=== PATIENT | female | born 1985 | race Two or more races ===

== ENCOUNTER 2018-08-14 16:12 | Emergency (ER) | payer BC, OTHER ==
[~2018-08-14] VITALS: Ht 165.1 cm; Wt 53.5 kg
[2018-08-14 16:32] VITALS: BP 112/71
--- NOTE | 2018-08-14 18:28 | Diagnostic Imaging Report ---
EXAM: US Pelvis Complete, Transabdominal CLINICAL HISTORY: PAIN TECHNIQUE: Real-time transabdominal pelvic ultrasound (complete) with image documentation. COMPARISON: No relevant prior studies available. FINDINGS: Uterus/cervix: Uterus measures 6.6 x 4.2 x 2.6 cm. Endometrium measures 8 mm. Nabothian cysts. Right ovary: Right ovary measures 2.9 x 3.4 x 1.7 cm. No mass lesion or torsion. Left ovary: Left ovary measures 4.2 x 2.9 x 1.7 cm. No mass lesion or torsion. Bladder: Unremarkable as visualized. Wall is normal thickness for degree of distention. Other findings: Assuming a negative test. Correlate. IMPRESSION: No acute findings.
[2018-08-14 18:30] LABS: APPEARANCE,URINE CLEAR; BILIRUBIN, URINE NEGATIVE (NEGATIVE); COLOR,URINE PALE YELLOW; GLUCOSE, URINE (UA) NEGATIVE (NEGATIVE); KETONES,URINE NEGATIVE (NEGATIVE); LEUKOCYTE ESTERASE ,URINE NEGATIVE (NEGATIVE); NITRITE,URINE NEGATIVE (NEGATIVE); PH,URINE 7 (4.5-8.0); PROTEIN,URINE NEGATIVE (NEGATIVE); UROBILINOGEN,URINE NORMAL MG/DL (0.0-1.0)
[2018-08-14] MEDS ORDERED: IBUPROFEN600 MG ORAL (18:34)
[2018-08-14 18:48] VITALS: BP 112/71
--- NOTE | 2018-08-14 21:41 | Emergency Room Report ---
History of Present Illness General Chief Complaint: Abdominal Pain Source: Patient Present Illness HPI Patient is a 32-year-old female who presented after increased abdominal pain for the past 3 weeks. Patient gradual onset of symptoms. Patient reports having generalized lower abdominal discomfort. Patient was sent from primary care physician's office for further evaluation. Patient denied any fever. She had not been vomiting. She puts having generalized pain. She denies being . She denies any dysuria. Irregular menses. Allergies: Coded Allergies: No Known Allergies (Unverified , 08/14/18) Patient History Past Medical History: see triage record Now: No Reviewed Nursing Documentation: PMH: Agreed; PSxH: Agreed Nursing Documentation-PMH Past Medical History: No Stated History Review of Systems All Other Systems: negative except mentioned in HPI Physical Exam Vital Signs Date Time Temp Pulse Resp B/P (MAP) Pulse Ox O2 Delivery O2 Flow Rate FiO2 08/14/18 16:21 98.1 64 16 112/71 97 Room Air 98.1 General Appearance: well appearing, no apparent distress, alert, GCS 15, non- toxic Head: normocephalic, atraumatic ENT: hearing grossly normal, normal voice Neck: full range of motion, supple Respiratory: no respiratory distress, speaking full sentences Cardiovascular #1: normal inspection, normal peripheral pulses, regular rate, rhythm Gastrointestinal: normal inspection, normal bowel sounds Musculoskeletal: normal inspection, no calf tenderness Neurologic: normal inspection, alert, oriented x3, responsive, normal gait Psychiatric: mood/affect normal Skin: no rash Medical Decision Making Diagnostic Impression: Primary Impression: Ovarian cyst Additional Impression: Nabothian (gland) cyst or follicle ER Course Patient presented for abdominal pain. Differential diagnosis included was not limited to ruptured ovarian cyst, ovarian torsion, bowel obstruction, hernia, ectopic among others.Because of complexity of patient's case imaging studies were ordered. The pelvic ultrasound showed no evidence of torsion with multiple cystic lesions. The patient was advised to follow-up with HALFWAY HOUSE COUNSELOR urinalysis showed no evidence of infection patient is not . Patient was given prescription for medications for pain. Last Vital Signs Date Time Temp Pulse Resp B/P (MAP) Pulse Ox O2 Delivery O2 Flow Rate FiO2 08/14/18 18:48 98.1 64 16 112/71 97 Room Air 98.1 Status: improved Disposition: HOME, SELF-CARE Condition: Stable Scripts Ibuprofen* (MOTRIN*) 600 Mg Tablet 600 MG ORAL Q8H PRN for For Pain, #30 TAB 0 Refills Prov: Sid Ty MD 08/14/18 Patient Instructions: Ovarian Cyst Additional Instructions: follow up with adobe block maker Sid Ty MD Aug 14, 2018 21:41
== END 2018-08-14 18:49 | disposition home or self-care (01) ==
LOC: EMR 16:47
DX: N83.209 Unspecified ovarian cyst, unspecified side (principal); N88.8 Other specified noninflammatory disorders of cervix uteri; Z87.891 Personal history of nicotine dependence
CPT/HCPCS: 76830; 76856; 81003; 81025; 99284

== ENCOUNTER 2018-09-09 12:39 | Emergency (ER) | payer OTHER ==
[~2018-09-09] VITALS: Ht 160 cm; Wt 52.6 kg
[~2018-09-09 12:39] MED LIST: IBUPROFEN600 MG ORAL
--- NOTE | 2018-09-09 13:12 | Emergency Room Report ---
History of Present Illness General Chief Complaint: Skin Rash/Abscess Source: Patient, Medical Record Present Illness HPI 32 YO Female presents to the ED c/o itchy rash over the body x 2 days. started after using new shaving cream, then exacerbated in [place]. Pt. denies fevers , chills or swollen tender lymph nodes. Denies new medications. Denies swelling of the lips, tongue , throat or airway. Denies wheezing, or shortness of breath. Denies recent travel, recent illness or ill contacts. denies blisters, oral lesions, or sloughing of the skin. Denies pain. Allergies: Coded Allergies: No Known Allergies (Unverified , 08/14/18) Patient History Past Medical History: see triage record Past Surgical History: none Pertinent Family History: none Last Menstrual Period: 09/04/18 Now: No Immunizations: UTD Reviewed Nursing Documentation: PMH: Agreed; PSxH: Agreed Nursing Documentation-PMH Past Medical History: No History, Except For Review of Systems All Other Systems: negative except mentioned in HPI Physical Exam Vital Signs Date Time Temp Pulse Resp B/P (MAP) Pulse Ox O2 Delivery O2 Flow Rate FiO2 09/09/18 12:49 99.0 67 18 120/80 96 Room Air 99.0 Sp02 EP Interpretation: reviewed, normal General Appearance: no apparent distress, alert, GCS 15, non-toxic Head: normocephalic, atraumatic Eyes: bilateral eye normal inspection, bilateral eye PERRL ENT: hearing grossly normal, no angioedema, normal voice, other - no swelling of lips or tongue, no stridor. Neck: full range of motion Respiratory: chest non-tender, lungs clear, normal breath sounds, no respiratory distress, no wheezing, speaking full sentences Cardiovascular #1: regular rate, rhythm Musculoskeletal: back normal, gait/station normal, normal range of motion, non- tender Neurologic: alert, oriented x3, responsive, motor strength/tone normal, sensory intact, speech normal, grossly normal Psychiatric: judgement/insight normal Skin: normal color, warm/dry, well hydrated, rash - diffuse papular rash with excoriations noted on torso, bilateral upper and lower extremities, and scantly on face. thicker more indurated plaques in the axilla bilaterally and a/c regions bilaterally. no blisters or vesicles. Lymphatic: no adenopathy Medical Decision Making PA Attestation Dr. richmond is my supervising Physician whom patient management has been discussed with. Diagnostic Impression: Primary Impression: Dermatitis ER Course 32 YO Female presents to the ED c/o itchy rash over the body x 2 days. started after using new shaving cream, then exacerbated in [place]. Pt. denies fevers , chills or swollen tender lymph nodes. Denies new medications. Denies swelling of the lips, tongue , throat or airway. Denies wheezing, or shortness of breath. Denies recent travel, recent illness or ill contacts. denies blisters, oral lesions, or sloughing of the skin. Denies pain. Ddx considered but are not limited to cellulitis, scabies, shingles, varicella, dermatitis, urticaria, eczema, tinea, viral exanthem, SJS Vital signs: are WNL, pt. is afebrile H&PE are most consistent with Reactive Dermatitis, most likely contact/chemical and exacerbated with heat. ORDERS: none required at this time, the diagnosis is clinical ED INTERVENTIONS: None required at this time. DISCHARGE: At this time pt. is stable for d/c to home. Will provide printed patient care instructions, and any necessary prescriptions. Care plan and follow up instructions have been discussed with the patient prior to discharge. Last Vital Signs Date Time Temp Pulse Resp B/P (MAP) Pulse Ox O2 Delivery O2 Flow Rate FiO2 09/09/18 12:49 99.0 67 18 120/80 96 Room Air 99.0 Disposition: HOME, SELF-CARE Condition: Stable Scripts Triamcinolone Acet (Triamcinolone Acetonide) 60 Ml Lotion 60 ML APPLIC BID, #60 ML 1 Refill Prov: Sarah Lou 09/09/18 Diphenhydramine Hcl (BENADRYL ALLERGY) 25 Mg Tablet 25 MG PO Q6HR for itching, #20 TAB Prov: Sarah Lou 09/09/18 Prednisone* (PREDNISONE*) 20 Mg Tablet 40 MG ORAL DAILY for 5 Days, #10 TAB Prov: Sarah Lou 09/09/18 Departure Forms: Return to Work Return to Work Date: Sep 13, 2018 Work Restrictions: None Return to Full Activity: Sep 13, 2018 Patient Instructions: Contact Dermatitis, [id number] Additional Instructions: Take medications as directed. Follow up with a Primary Care Provider in 3-5 days for DERMATOLOGY REFERRAL , even if your symptoms have resolved. --Please review list of primary care clinics, if you do not already have a primary care provider Return sooner to ED if new symptoms occur, or current symptoms become worse. Do not drink alcohol, drive, or operate heavy machinery while taking Benadryl as this may cause drowsiness. - Please note that this Emergency Department Report was dictated using [employer] banking technology software, occasionally this can lead to erroneous entry secondary to interpretation by the dictation equipment. Sarah Lou Sep 09, 2018 13:12
[2018-09-09] MEDS ORDERED: PREDNISONE20 MG ORAL (13:15)
[2018-09-09] MEDS ORDERED: KENALOG 0.1% LO60 ML APPLIC (13:15)
[2018-09-09] MEDS ORDERED: BENADRYL ALLERG25 M1 PO (13:15)
[2018-09-09 13:18] VITALS: BP 120/80
[2018-09-09 13:20] VITALS: BP 120/80
== END 2018-09-09 13:20 | disposition home or self-care (01) ==
LOC: EMR 13:16
DX: L30.9 Dermatitis, unspecified (principal)
CPT/HCPCS: 99283

== ENCOUNTER 2018-11-02 14:06 | Emergency (ER) | payer BC, OTHER ==
[~2018-11-02] VITALS: Ht 165.1 cm; Wt 51.7 kg
[~2018-11-02 14:06] MED LIST changes: +BENADRYL ALLERG25 M1 PO; +KENALOG 0.1% LO60 ML APPLIC; +PREDNISONE20 MG ORAL
[2018-11-02] MEDS ORDERED: NKM (14:29)
[2018-11-02] MEDS ORDERED: HYDROCORTISONE-30 GM TOPIC (15:02)
[2018-11-02] MEDS ORDERED: BACITRACIN-P28.35 GM TP (15:02)
--- NOTE | 2018-11-02 15:03 | Emergency Room Report ---
History of Present Illness General Chief Complaint: Skin Rash/Abscess Source: Patient Present Illness HPI 33-year-old female patient presents ER complaining of rash on lips and hands and armpits for the past 2 months. was previously seen at ER diagnosis of contact dermatitis, states she followed up systems manager who said it was most likely an allergic reaction, was referred to marketing data specialist for allergy testing. States she is scheduled to have allergy testing performed next 2 days, was told not to take any antihistamines or steroids medications. Reports dry cracked lips. states concern for possible fungal infection, states friend had similar symptoms and had a fungal infection and she would like to have fungal test performed on her lips in the ER. states she is taking an oral "natural" fungal medication, does not know the name of the medication. Denies fever, chest pain, shortness of breath. Allergies: Coded Allergies: No Known Allergies (Unverified , 08/14/18) Patient History Past Medical History: see triage record Now: No Reviewed Nursing Documentation: PMH: Agreed; PSxH: Agreed Nursing Documentation-PMH Past Medical History: No History, Except For Review of Systems All Other Systems: negative except mentioned in HPI Physical Exam Vital Signs Date Time Temp Pulse Resp B/P (MAP) Pulse Ox O2 Delivery O2 Flow Rate FiO2 11/02/18 14:24 98.4 71 18 111/75 99 Room Air Sp02 EP Interpretation: reviewed, normal General Appearance: well appearing, no apparent distress, alert, GCS 15, non- toxic Head: normocephalic, atraumatic Eyes: bilateral eye normal inspection, bilateral eye PERRL ENT: hearing grossly normal, normal pharynx, no angioedema, normal voice, uvula midline, moist mucus membranes Neck: full range of motion Respiratory: lungs clear, normal breath sounds, no rhonchi, no respiratory distress, no accessory muscle use, no wheezing, speaking full sentences Cardiovascular #1: regular rate, rhythm, no edema Cardiovascular #2: 2+ radial (R), 2+ radial (L) Gastrointestinal: non tender, soft, no mass, non-distended, no guarding, no rebound Musculoskeletal: back normal, digits/nails normal, gait/station normal, normal range of motion, non-tender Neurologic: alert, oriented x3, responsive, motor strength/tone normal, sensory intact Psychiatric: mood/affect normal Skin: other - dry cracked skin, erythematous between finger webs, no linear burrows, no scaling, no scalloped borders, no satellite lesions; dry cracked lips, no erythema, no drainage or tenderness, no satellite lesions, no scaling Medical Decision Making PA Attestation Dr. Butler is my supervising Physician whom patient management has been discussed with. Diagnostic Impression: Primary Impression: Rash and other nonspecific skin eruption ER Course Pt. presents to the ED c/o pruritic rash hands, axilla and lips, reports dry cracked lips. Ddx considered but are not limited to atopic dermatitis, scabies, shingles, hives, urticaria, angiodema, allergic reaction, impetigo, fungal infection. Vital signs: are WNL, pt. is afebrile ER COURSE physical exam consistent with eczema. patient states cannot have any antihistamines or steroids medications prior to allergy testing. Informed patient to keep skin well hydrated. Following allergy testing, take steroids and antihistamines, apply small amount of hydrocortisone to lips. Followup with dermatology for further testing of lip infection. Apply Bacitracin to cover for possible infection. ER precautions given. DISCHARGE: -Rx given for bacitracin -Rx given for Hydrocortisone. At this time pt. is stable for d/c to home. Patient resting comfortably, in no acute distress, nontoxic appearinge. Will provide printed patient care instructions, and any necessary prescriptions. Care plan and follow up instructions have been discussed with the patient prior to discharge. Patient provided with list of healthcare clinics to establish primary care physician. Patient instructed to follow-up with primary care provider in 3 - 5 days. Patient questions asked and answered. ER precautions given. Patient instructed to return to ER immediately for any new or worsening of symptoms including but not limited to increasing SOB, persistent fever. - Please note that this Emergency Department Report was dictated using [employer] machine tender technology software, occasionally this can lead to erroneous entry secondary to interpretation by the dictation equipment. Last Vital Signs Date Time Temp Pulse Resp B/P (MAP) Pulse Ox O2 Delivery O2 Flow Rate FiO2 11/02/18 14:24 98.4 71 18 111/75 99 Room Air Disposition: HOME, SELF-CARE Condition: Stable Scripts Hydrocortisone/Aloe Vera 1%* (HYDROCORTISONE-ALOE 1% CREAM*) Y Cr 1 APPLIC TOPIC Q6H PRN for Itching, #30 GM Prov: Vazquez Gooden 11/02/18 Bacitracin/Polymyxin B Sulfate (BACITRACIN-POLYMYXIN OINTMENT) 28.35 Gm Oint...g. 1 APPLIC TP BID, #28 GM Prov: Vazquez Gooden 11/02/18 Patient Instructions: Eczema, Rash Additional Instructions: Followup with primary care provider in 3 -5 days. Request referral to dermatology as needed. Do not scratch or itch. Apply cool compresses to affected area. Keep well-hydrated. Take medications as directed. Do not take steroid or antihistamines until after allergy testing as instructed by marketing data specialist. Do not apply topical steroid medication toskin creases. SE Benadryl drowsiness, do not take prior to drinking, driving, operating heavy machinery. Take Claritin during the day and Benadryl at night for itching symptoms. Patient questions asked and answered. ER precautions given, patient instructed to return to ER immediately for any new or worsening of symptoms. [facility] Vazquez Gooden Nov 02, 2018 15:03
[2018-11-02 15:13] VITALS: BP 111/75
== END 2018-11-02 15:10 | disposition home or self-care (01) ==
LOC: EMR 14:58
DX: R21 Rash and other nonspecific skin eruption (principal)
CPT/HCPCS: 99282